=== PATIENT | female | born 1940 | race Caucasian/White ===

== ENCOUNTER 2017-01-07 12:07 | Day surgery (SDC) | payer MEDICARE, BC ==
[~2017-01-07 12:07] MED LIST: CIPROFLOXACIN HCL 500 MG TABLET PO PRN
[2017-01-07] MEDS ORDERED: LIDOCAINE HCL 10 APPL CARTRIDGE TP ONE (13:15)
[2017-01-07 14:18] VITALS: BP 157/88
== END 2017-01-07 12:08 | disposition home or self-care (01) ==
LOC: AMB 12:07
PROVIDERS: ATTEND Urology
PROC: 3E1K88X Irrigation of Genitourinary Tract using Irrigating Substance, Via Natural or Artificial Opening Endoscopic, Diagnostic (ICD-10-PCS; 2017-01-07)
PROC: 0TJB8ZZ Inspection of Bladder, Via Natural or Artificial Opening Endoscopic (ICD-10-PCS; principal; 2017-01-07 13:10)
DX: R31.29 Other microscopic hematuria (principal); J44.9 Chronic obstructive pulmonary disease, unspecified; K21.9 Gastro-esophageal reflux disease without esophagitis; I50.30 Unspecified diastolic (congestive) heart failure; E78.5 Hyperlipidemia, unspecified; E03.9 Hypothyroidism, unspecified; Z87.891 Personal history of nicotine dependence; Z68.35 Body mass index [BMI] 35.0-35.9, adult